=== PATIENT | male | born 1980 | race Caucasian/White ===

== ENCOUNTER 2019-07-11 19:54 | Emergency (ER) | payer OTHER ==
[2019-07-11] MEDS ORDERED: Sodium Chloride 0.9% 1000 ML 1,000 ML IV STA (20:07)
[2019-07-11] MEDS ORDERED: TORAdol 30 mg Injection IV ONE (20:07)
[2019-07-11] MEDS ORDERED: Zofran 4 MG/2 ML VIAL IV ONE (20:07)
[2019-07-11] MEDS ORDERED: TORAdol 30 mg Injection ONE (20:08)
[2019-07-11] MEDS ORDERED: Sodium Chloride 0.9% 1000 ML 1,000 ML ONE (20:08)
[2019-07-11] MEDS ORDERED: Zofran 4 MG/2 ML VIAL ONE (20:08)
[2019-07-11 20:09] VITALS: O2SAT 100
--- NOTE | 2019-07-11 20:16 | ERPHSYRPT ---
- History of Present Illness Time Seen by Provider: 07/11/19 20:10 Historian: patient Exam Limitations: no limitations Patient Subjective Stated Complaint: pt is alert and oriented. pt is ambulatory with a steady gait. pt comes in with c/o left side abd pain. pt was diagnosed with a 5mm kidney stone in his left ureter on . pt states that the pain has moved along his left side and in his left flank. pt denies n/v/d. pt states that his urine was dark brown "the other day" but not reported abnormalities today. pt states that the pain has been intermittent. pt states that the pain is sharp in nature. Triage Nursing Assessment: see above Physician History: States his just had gall bladder surgery and while he was in visiting he doubled over with pain. Had CT and DX of L renal stone on ; had a prior stone history Timing/Duration: today Activities at Onset: none Quality: stabbing Pain Radiation: no radiation Severity of Pain-Max: moderate Severity of Pain-Current: moderate Modifying Factors: Improves With: nothing Associated Symptoms: denies symptoms Previous symptoms: other (stone 2 conths ago and a tiny one 2001) Allergies/Adverse Reactions: No Known Drug Allergies Allergy (Unverified 07/11/19 20:20) Home Medications: Lisdexamfetamine Dimesylate [Vyvanse] 70 mg PO DAILY 07/11/19 [History] Tamsulosin HCl 0.4 mg [Flomax 0.4 MG] 0.4 mg PO DAILY 07/11/19 [History] Immunizations Up to Date: Yes - Review of Systems Constitutional: No Symptoms, No Fever, No Chills Respiratory: No Symptoms Abdominal/Gastrointestinal: Abdominal Pain (Left flank - colicy), No Nausea, No Vomiting, No Diarrhea Genitourinary Symptoms: Flank Pain Musculoskeletal: No Symptoms All Other Systems: Reviewed and Negative - Past Medical History Pertinent Past Medical History: Yes Neurological History: No Pertinent History ENT History: No Pertinent History Cardiac History: No Pertinent History Respiratory History: No Pertinent History Endocrine Medical History: No Pertinent History Musculoskeletal History: No Pertinent History GI Medical History: No Pertinent History History: Other Psycho-Social History: No Pertinent History Male Reproductive Disorders: No Pertinent History Other Medical History: kidney stones - Past Surgical History Past Surgical History: Yes Neuro Surgical History: No Pertinent History Cardiac: No Pertinent History Respiratory: No Pertinent History Gastrointestinal: No Pertinent History Genitourinary: No Pertinent History Musculoskeletal: Orthopedic Surgery Male Surgical History: No Pertinent History Other Surgical History: bilat arm and wrist surgery - Social History Smoking Status: Never smoker Drug Use: none - Nursing Vital Signs Nursing Vital Signs: Initial Vital Signs Temperature 97.8 F 07/11/19 19:59 Pulse Rate 63 07/11/19 19:59 Respiratory Rate 18 07/11/19 19:59 Blood Pressure 153/100 07/11/19 19:59 O2 Sat by Pulse Oximetry 100 07/11/19 19:59 Pain Scale Pain Intensity 6 - Physical Exam General Appearance: moderate distress (With colicy left flank pain) Respiratory Exam: normal breath sounds, lungs clear, airway intact Cardiovascular Exam: regular rate/rhythm Gastrointestinal/Abdomen Exam: soft, No tenderness Neurologic Exam: alert, oriented x 3, cooperative SpO2 Interpretation: normal SpO2: 100 O2 Delivery: Room Air - Course Nursing assessment & vital signs reviewed: Yes Ordered Tests: Active Orders 24 hr Category Date Time Status CULTURE,URINE Stat Lab 07/11/19 21:09 Received UA W/RFX UR CULTURE Stat Lab 07/11/19 21:09 Completed Medication Summary Discontinued Medications Generic Name Dose Route Start Last Admin Trade Name Freq PRN Reason Stop Dose Admin Hydrocodone Bitart/Acetaminophen 1 tab 07/11/19 20:58 07/11/19 21:04 Francis 10/325 Mg Tablet PO 07/11/19 20:59 1 tab STAT ONE Administration Hydrocodone Bitart/Acetaminophen Confirm 07/11/19 21:03 Francis 10/325 Mg Tablet Administered 07/11/19 21:04 Dose 1 tab .ROUTE .STK-MED ONE Sodium Chloride 1,000 mls @ 999 mls/hr 07/11/19 20:07 07/11/19 20:14 Sodium Chloride 0.9% 1000 Ml IV 07/11/19 21:07 999 mls/hr .Q1H1M STA Administration Sodium Chloride Confirm 07/11/19 20:08 Sodium Chloride 0.9% 1000 Ml Administered 07/11/19 20:09 Dose 1,000 mls @ ud .ROUTE .STK-MED ONE Ketorolac Tromethamine 30 mg 07/11/19 20:07 07/11/19 20:20 Toradol 30 Mg Injection IV 07/11/19 20:08 30 mg STAT ONE Administration Ketorolac Tromethamine Confirm 07/11/19 20:08 Toradol 30 Mg Injection Administered 07/11/19 20:09 Dose 30 mg .ROUTE .STK-MED ONE Ondansetron HCl 4 mg 07/11/19 20:07 07/11/19 20:20 Zofran 4 Mg/2 Ml Vial IV 07/11/19 20:08 4 mg STAT ONE Administration Ondansetron HCl Confirm 07/11/19 20:08 Zofran 4 Mg/2 Ml Vial Administered 07/11/19 20:09 Dose 4 mg .ROUTE .STK-MED ONE Trimethoprim/Sulfamethoxazole 1 tab 07/11/19 21:49 07/11/19 21:59 Bactrim Ds Tablet PO 07/11/19 21:50 1 tab STAT STA Administration Trimethoprim/Sulfamethoxazole Confirm 07/11/19 21:58 Bactrim Ds Tablet Administered 07/11/19 21:59 Dose 1 tab PO .STK-MED ONE Lab/Rad Data: Laboratory Results 07/11/19 Range/Units 21:09 Urine Color YELLOW (YELLOW) Urine Appearance SLIGHTLY CLOUDY (CLEAR) Urine pH 5.0 (5-6) Ur Specific [place] 1.012 (1.005-1.025) Urine Protein NEGATIVE (Negative) Urine Ketones NEGATIVE (NEGATIVE) Urine Blood MODERATE (0-5) Trevor/ul Urine Nitrite NEGATIVE (NEGATIVE) Urine Bilirubin NEGATIVE (NEGATIVE) Urine Urobilinogen NEGATIVE (0-1) mg/dL Ur Leukocyte Esterase SMALL (NEGATIVE) Urine WBC (Auto) 16-25 (0-5) /HPF Urine RBC (Auto) 16-25 (0-2) /HPF U Epithel Cells (Auto) NONE (FEW) /HPF Urine Bacteria (Auto) NONE SEEN (NEGATIVE) /HPF Urine Mucus (Auto) SLIGHT (NEGATIVE) /HPF Urine Culture Reflexed YES (NO) Urine Glucose NEGATIVE (NEGATIVE) mg/dL - Progress Progress: improved (RN reports pain 6/10 - was 9/10 on entry) Progress Note: 07/11/19 20:44 Pt states he got 10 of pain pills - hydorcodone - as well as the flomax. Has provided a sample of urine 07/11/19 22:00 Discussed with patient - large number of WBCs in urine - out of proportiion to the number of RBCs and suggests a UTI - will place on antibiotic. Educated re medications - Departure Departure Disposition: Home Clinical Impression: Renal stone UTI (urinary tract infection) Qualifiers: Urinary tract infection type: acute cystitis Hematuria presence: without hematuria Qualified Code(s): N30.00 - Acute cystitis without hematuria Condition: Stable Critical Care Time: No Referrals: MIKALA CHU FNP [Primary Care Provider] - Additional Instructions: Take antibioltic (Septra) ; the urine will be cultured to see if bacteria are present and what sensitivity or resistance there is to the abtibiotic. Use pain medications as needed with renal stone movement. If running a fever of 101 or above or doubled over in pain, return to ER. [facility] follow up with primary care provider, Prescriptions: Hydrocodone Bit/Acetaminophen [Francis 7.5-325 Tablet] 1 each PO Q6H PRN PRN #14 tablet PRN Reason: Mild To Moderate Pain Sulfamethoxazole/Trimethoprim [Bactrim Ds Tablet] 1 each PO BID #14 tablet
[2019-07-11 20:58] VITALS: BP 148/93
[2019-07-11] MEDS ORDERED: Norco 10/325 MG Tablet PO ONE (20:58)
[2019-07-11] MEDS ORDERED: Norco 10/325 MG Tablet ONE (21:03)
[2019-07-11 21:19] LABS: Appearance SLIGHTLY CLOUDY (CLEAR); Bacteria NONE SEEN /HPF (NEGATIVE); Bilirubin NEGATIVE (NEGATIVE); Blood MODERATE Ery/ul (0-5); Glucose NEGATIVE (NEGATIVE); Ketones NEGATIVE (NEGATIVE); Leukocyte Esterase SMALL (NEGATIVE); Mucus SLIGHT /HPF (NEGATIVE); Nitrite NEGATIVE (NEGATIVE); Protein,Urine Dip NEGATIVE (Negative); Specific Gravity 1.012 (1.005-1.025); Urobilinogen NEGATIVE mg/dL (0-1)
[2019-07-11 21:43] VITALS: PULSE 72
[2019-07-11] MEDS ORDERED: BACTRIM DS TABLET PO STA (21:49)
[2019-07-11] MEDS ORDERED: BACTRIM DS TABLET PO ONE (21:58)
== END 2019-07-11 22:00 | disposition home or self-care (01) ==
LOC: ED 19:54
DX: N20.0 Calculus of kidney (principal); N30.00 Acute cystitis without hematuria
CPT/HCPCS: 81001; 87086; 96360; 96374; 96375; 99284; J1885; J2405; A9270-GY